=== PATIENT | female | born 1975 | race Native Hawaiian/Other Pacific Islander ===

== ENCOUNTER 2019-02-05 16:00 | Outpatient (CLI) | payer BC ==
[2019-02-05] MEDS ORDERED: SYNTHROID PO (16:45)
[2019-02-05] MEDS ORDERED: NOVOLOG100 UNIT/M SC (16:45)
[2019-02-05] MEDS ORDERED: INSULIN PUM1 SC (16:46)
[2019-02-05] MEDS ORDERED: BENAZEPRIL HCL5 MG PO (16:47)
[2019-02-05] MEDS ORDERED: BIRTH CONTROL PILLS PO (16:48)
== END 2019-02-05 16:02 | disposition short-term general hospital (02) ==
LOC: AMB 16:00
DX: E10.641 Type 1 diabetes mellitus with hypoglycemia with coma (principal); Z96.41 Presence of insulin pump (external) (internal); Z79.4 Long term (current) use of insulin; R11.10 Vomiting, unspecified
CPT/HCPCS: A0425; A0427

== ENCOUNTER 2019-02-05 16:11 | Emergency (ER) | payer BC ==
[~2019-02-05] VITALS: Ht 152.4 cm; Wt 59.0 kg
[2019-02-05 16:39] LABS: PLATELET COUNT 414 K/uL (152-353)
[2019-02-05] MEDS ORDERED: NOVOLOG100 UNIT/M SC (16:45)
[2019-02-05] MEDS ORDERED: SYNTHROID PO (16:45)
[2019-02-05] MEDS ORDERED: INSULIN PUM1 SC (16:46)
[2019-02-05] MEDS ORDERED: BENAZEPRIL HCL5 MG PO (16:47)
[2019-02-05 16:48] LABS: POTASSIUM 2.8 mmol/L (3.6-5.2)
[2019-02-05] MEDS ORDERED: BIRTH CONTROL PILLS PO (16:48)
[2019-02-05 20:14] VITALS: BP 110/68; TEMP 97.5
== END 2019-02-05 20:14 | disposition home or self-care (01) ==
LOC: ED 16:11
PROVIDERS: Emergency Medicine
DX: E11.649 Type 2 diabetes mellitus with hypoglycemia without coma (principal); Z96.41 Presence of insulin pump (external) (internal); E87.6 Hypokalemia
CPT/HCPCS: 80053; 82962; 85027; 99283